=== PATIENT | female | born 1995 | race Two or more races ===

== ENCOUNTER 2022-09-24 23:43 | Emergency (ER) | payer OTHER ==
[2022-09-24 23:50] VITALS: BP 131/92; PULSE 108; RESP 18; BMI 23.6
== END 2022-09-25 01:40 | disposition home or self-care (01) ==
LOC: FER 23:43
DX: F12.10 Cannabis abuse, uncomplicated (principal)
CPT/HCPCS: 99281-25

== ENCOUNTER 2023-06-19 22:05 | Inpatient (IN) | payer OTHER ==
[2023-06-19 23:11] VITALS: BMI 31.9
[2023-06-19] MEDS ORDERED: FENTANYL/BUPIVACAINE/NS/PF - PCEA - 50 ML DISP.SYRIN EP ONE (23:15)
[2023-06-19 23:16] LABS: BASO % 0.4 % (0-2.0); EOS % 1.1 % (0-4.5); HEMATOCRIT 30.6 % (32.4-45.2); LYMPH % 23.1 % (8-40); MCH 24.7 pg (25.7-33.7); MCHC 32.7 g/dl (32.0-36.0); MEAN CELL VOLUME 75.5 fl (80-96); MEAN PLT VOLUME 7.8 fl (7.5-11.1); MONO % 6.8 % (3.8-10.2); NEUT % 68.6 % (42.8-82.8); PLATELET COUNT 300 10^3/uL (134-434); RBC 4.06 M/mm3 (3.60-5.2); RDW 16.5 % (11.6-15.6); WHITE BLOOD COUNT 8.8 K/mm3 (4.0-10.0)
[2023-06-19 23:23] LABS: INR 0.9 (0.83-1.09); PROTHROMBIN TIME (PATIENT) 10.5 SEC (9.7-13.0)
[2023-06-19 23:25] LABS: ACTIVATED PTT 23.5 SECONDS (25.2-36.5)
[2023-06-19] MEDS ORDERED: FENTANYL/BUPIVACAINE/NS/PF - PCEA - 50 ML DISP.SYRIN EP SCH (23:45)
[2023-06-19] MEDS ORDERED: NALOXONE HCL 0.4 MG/ML VIAL IVPUSH PRN (23:50)
[2023-06-19] MEDS ORDERED: FENTANYL CITRATE/PF 50 MCG/ML VIAL ONE (23:53)
[2023-06-19] MEDS ORDERED: BUPIVACAINE HCL/PF 0.25% (2.5MG/ML) 10 ML VIAL ONE (23:53)
[2023-06-20 00:05] LABS: BLOOD UREA NITROGEN 8.9 mg/dL (7-18); CALCIUM 8.8 mg/dL (8.5-10.1)
[2023-06-20 00:08] LABS: CREATININE 0.6 mg/dL (0.55-1.3)
[2023-06-20] MEDS ORDERED: OXYTOCIN 20 UNITS in 0.9% NS 20 UNIT/1,000 ML INFUS.BAG IV ONE (01:56)
[2023-06-20] MEDS ORDERED: ELECTROLYTE-148 SOLN 1,000 ML IV SCH (02:30)
[2023-06-20] MEDS ORDERED: FENTANYL/BUPIVACAINE/NS/PF - PCEA - 50 ML DISP.SYRIN EP ONE (03:09)
[2023-06-20] MEDS ORDERED: BISACODYL 10 MG SUPP.RECT RC PRN (04:10)
[2023-06-20] MEDS ORDERED: ACETAMINOPHEN 325 MG TABLET (FP) PO PRN (04:10)
[2023-06-20] MEDS ORDERED: BENZOCAINE 28 GM HEMORRHOIDAL OINTMENT TP PRN (04:10)
[2023-06-20] MEDS ORDERED: METHYLERGONOVINE MALEATE 0.2 MG/1 ML AMP IM PRN (04:10)
[2023-06-20] MEDS ORDERED: BENZOCAINE 20% 57 GM BOTTLE TP PRN (04:10)
[2023-06-20] MEDS ORDERED: WITCH HAZEL 50% (TUCKS) 40 PAD/JAR PAD TP PRN (04:10)
[2023-06-20] MEDS ORDERED: OXYTOCIN 20 UNITS in 0.9% NS 20 UNIT/1,000 ML INFUS.BAG IV SCH (04:15)
[2023-06-20 05:29] LABS: CORD BASE EXCESS -4.5 mmol/L (0-2); CORD HCO3 20.4 mmHg (20-29); CORD PCO2 37.4 mmHg (30-78); CORD pH 7.354 (7.14-7.44)
[2023-06-20 05:31] LABS: CORD BASE EXCESS -2.1 mmol/L (0-2); CORD HCO3 23.4 mmHg (20-29); CORD PCO2 42.3 mmHg (30-78); CORD pH 7.36 (7.14-7.44)
[2023-06-20 07:53] LABS: POC NITRAZINE POS
[2023-06-20] MEDS: IBUPROFEN 600 MG TABLET (FP) PO PRN ×3 (08:42→20:45)
[2023-06-21 08:03] LABS: BASO % 0.5 % (0-2.0); EOS % 1.4 % (0-4.5); HEMOGLOBIN 9.1 GM/dL (10.7-15.3); LYMPH % 20.1 % (8-40); MCH 24.4 pg (25.7-33.7); MCHC 31.3 g/dl (32.0-36.0); MEAN CELL VOLUME 77.8 fl (80-96); MEAN PLT VOLUME 7.4 fl (7.5-11.1); MONO % 5.9 % (3.8-10.2); NEUT % 72.1 % (42.8-82.8); PLATELET COUNT 253 10^3/uL (134-434); RBC 3.73 M/mm3 (3.60-5.2); RDW 17.2 % (11.6-15.6); WHITE BLOOD COUNT 8.6 K/mm3 (4.0-10.0)
[2023-06-21] MEDS: IBUPROFEN 600 MG TABLET (FP) PO PRN ×2 (10:32→19:58)
[2023-06-21] MEDS ORDERED: SENNOSIDES/DOCUSATE COMBO (SENNA PLUS) TABLET (UD) PO PRN (22:00)
[2023-06-22] MEDS: IBUPROFEN 600 MG TABLET (FP) PO PRN (06:00)
[2023-06-22 10:10] VITALS: BP 123/78; PULSE 84; RESP 17; TEMP 97.8
== END 2023-06-22 11:45 | disposition home or self-care (01) | DRG 807 ==
LOC: JLDR 22:05 → J3W 06-20 05:42
PROVIDERS: ADMIT Obstetrics & Gynecology; ATTEND Obstetrics & Gynecology
PROC: 10E0XZZ Delivery of Products of Conception, External Approach (ICD-10-PCS; principal; 2023-06-20)
DX: O80 Encounter for full-term uncomplicated delivery (principal); Z37.0 Single live birth; Z3A.40 40 weeks gestation of pregnancy
CPT/HCPCS: 36415; 36600; 80048; 82803; 83986-QW; 85025; 85610; 85730; 86780; 86850; 86900; 86901